=== PATIENT | female | born 1995 | race Caucasian/White ===

== ENCOUNTER 2021-01-12 18:02 | Emergency (ER) | payer OTHER ==
[~2021-01-12] VITALS: Ht 157.5 cm; Wt 81.7 kg
[~2021-01-12 18:02] MED LIST: NOHOMEMEDICATIONS
[2021-01-12 19:44] LABS: URINE BILIRUBIN NEGATIVE (Negative); URINE BLOOD 1+ (Negative); URINE CLARITY CLEAR; URINE COLOR YELLOW; URINE GLUCOSE-RANDOM NEGATIVE (Negative); URINE KETONES 1+ (Negative); URINE LEUKOCYTES-REFLEX 1+ (Negative); URINE NITRITE-REFLEX NEGATIVE (Negative); URINE PROTEIN NEGATIVE (Negative)
[2021-01-12 19:55] LABS: BACTERIA-REFLEX 1-9 Few /HPF (None Seen); SQUAMOUS 4-10 Moderate /LPF (0-3); URINE RBC 0-2 Rare /HPF (0-2); URINE WBC-REFLEX 0-5 Rare /HPF (0-5)
[2021-01-12 19:56] LABS: CASTS None Seen /LPF (None Seen); CRYSTALS None Seen /LPF (None Seen)
[2021-01-12 19:57] LABS: ABSOLUTE BASOPHILS 0.1 thou/uL (0.0-0.2); ABSOLUTE EOSINOPHILS 0.2 thou/uL (0.0-0.7); ABSOLUTE LYMPHOCYTES 2.4 thou/uL (0.8-5.3); ABSOLUTE MONOCYTES 0.6 thou/uL (0.0-1.2); ABSOLUTE NEUTROPHILS 6.3 thou/uL (1.6-8.1); BASOPHILS 0.6 %; EOSINOPHILS 1.7 %; HEMATOCRIT 37.6 % (37.0-47.0); HEMOGLOBIN 12.9 gm/dL (12.0-15.0); LYMPHOCYTES 25.7 %; MCH 28.5 pg (26.0-34.0); MCHC 34.3 g/dL (28.0-37.0); MCV 82.9 fL (80.0-100.0); MONOCYTES 6.4 %; MPV 6.7 fl. (7.2-11.1); NUCLEATED RBCS 0 /100WBC; PLATELET COUNT* 228 thou/uL (150-400); POLYS 65.6 %; RBC 4.54 mil/uL (4.20-5.00); RDW-CV 14.3 % (10.5-14.5); WBC 9.5 thou/uL (4.0-11.0)
[2021-01-12 20:04] LABS: CALCIUM 8.7 mg/dL (8.5-10.1); CREATININE 0.7 mg/dL (0.6-1.3)
[2021-01-12] MEDS ORDERED: PEPCID20 MG PO (20:22)
[2021-01-12 20:47] VITALS: BP 108/70
== END 2021-01-12 20:47 | disposition home or self-care (01) ==
LOC: M.ERS 18:02
PROVIDERS: Nurse Practitioner Family; Nurse Practitioner Psychiatric/Mental Health
DX: R10.13 Epigastric pain (principal)